=== PATIENT | female | born 1985 | race African-American/Black ===

== ENCOUNTER 2020-03-20 13:10 | Emergency (ER) | payer OTHER, SELFPAY ==
[2020-03-20 13:16] VITALS: BP 184/121; PULSE 100; RESP 20; TEMP 36.8; O2SAT 100
--- NOTE | 2020-03-20 13:33 | ED.DENTAL ---
HPI - Dental/Oral General Chief complaint: Dental/Oral <JORGE L Butler Last Filed: 03/20/20 14:11> Stated complaint: Toothache <JORGE L Butler Last Filed: 03/20/20 14:11> Time Seen by Provider: 03/20/20 13:11 <JORGE L Butler Last Filed: 03/20/20 14:11> Source: patient <JORGE L Butler Last Filed: 03/20/20 14:11> Mode of arrival: ambulatory <JORGE L Butler Last Filed: 03/20/20 14:11> Limitations: no limitations <JORGE L Butler Last Filed: 03/20/20 14:11> History of Present Illness HPI Narrative: Patient presents the emergency department for toothache x2 weeks. Reports 2 teeth on the left side of her mouth has been bothering her. Reports worsening over the last couple of days. She has been taking [id number] pain medication with little relief. Denies fever, swelling, or vomiting. <Jaelyn Estrada PA-C - Last Filed: 03/20/20 14:11> Location: Tooth # (16, 17) <JORGE L Butler Last Filed: 03/20/20 14:11> Related Data Allergies/adverse reactions: Allergies Allergy/AdvReac Type Severity Reaction Status Date / Time Penicillins Allergy Intermediate Swelling Verified 03/20/20 13:21 codeine Allergy Mild Hives / Verified 03/20/20 13:21 Red Face zolpidem AdvReac Intermediate Hallucinati Verified 03/20/20 13:21 ng pinapples Allergy Unknown Swelling Uncoded 03/20/20 13:21 of Lip/Tongue/Throat <JORGE L Butler Last Filed: 03/20/20 14:11> Review of Systems Review of Systems: Narrative: CONSTITUTIONAL: Denies fever ENT: Reports dentalgia <JORGE L Butler Last Filed: 03/20/20 14:11> All systems reviewed & are unremarkable except as noted in HPI and below <JORGE L Butler Last Filed: 03/20/20 14:11> [facility] Surgical History Surgical History: Surgical History (Updated 03/20/20 @ 13:35 by Jaelyn Estrada PA-C) History of appendectomy <Jaelyn Estrada PA-C - Last Filed: 03/20/20 14:11> Social History Social History: Social History (Updated 03/20/20 @ 13:35 by Jaelyn Estrada PA-C) Smoking status: Never smoker Substance use: never Gender identity (if verbalized by the patient): Female <Jaelyn Estrada PA-C - Last Filed: 03/20/20 14:11> Exam Narrative: Exam Narrative: GENERAL: Well-appearing, well-nourished, and in no acute distress. HEAD: Normocephalic, atraumatic. EYES: EOMI. ENT: Oropharynx without tonsillar hypertrophy exudate or other lesions. Tooth #16 and 17 tender to palpation, no surrounding erythema or edema to suggest abscess NECK: Supple. No adenopathy or masses. CHEST: Airway patent EXTREMITIES: Normal range of motion. No edema. SKIN: Warm, dry, no rash. NEURO: No focal deficits. Alert and oriented x3. PSYCH: Normal mood and affect <Jaelyn Estrada PA-C - Last Filed: 03/20/20 14:11> Course Vital Signs Vital signs: Vital Signs Temperature 98.3 F 03/20/20 13:16 Pulse Rate 100 03/20/20 13:16 Respiratory Rate 20 03/20/20 13:16 Blood Pressure 184/121 H 03/20/20 13:16 Pulse Oximetry 100 03/20/20 13:16 Temperature 98.3 F 03/20/20 13:16 Pulse Rate 84 03/20/20 14:43 Respiratory Rate 16 03/20/20 14:43 Blood Pressure 182/124 H 03/20/20 14:43 Pulse Oximetry 98 03/20/20 14:43 <Jaelyn Estrada PA-C - Last Filed: 03/20/20 14:11> Vital Signs Temperature 98.3 F 03/20/20 13:16 Pulse Rate 100 03/20/20 13:16 Respiratory Rate 20 03/20/20 13:16 Blood Pressure 184/121 H 03/20/20 13:16 Pulse Oximetry 100 03/20/20 13:16 Temperature 98.3 F 03/20/20 13:16 Pulse Rate 84 03/20/20 14:43 Respiratory Rate 16 03/20/20 14:43 Blood Pressure 182/124 H 03/20/20 14:43 Pulse Oximetry 98 03/20/20 14:43 <Neha James MD - Last Filed: 03/20/20 14:58> MDM - Dental/Oral MDM Narrative Medical decision making narrative: Patient presents the emergency
[2020-03-20 13:52] VITALS: PULSE 85; RESP 18; O2SAT 98
[2020-03-20 14:43] VITALS: BP 182/124; PULSE 84; RESP 16; O2SAT 98
== END 2020-03-20 14:44 | disposition home or self-care (01) ==
PROVIDERS: Emergency Provider General Practice
DX: K08.89 Other specified disorders of teeth and supporting structures (principal); R03.0 Elevated blood-pressure reading, without diagnosis of hypertension
CPT/HCPCS: 99283; A9270

== ENCOUNTER 2020-09-14 13:46 | Emergency (ER) | payer OTHER, SELFPAY ==
[2020-09-14] VITALS (16 sets, daily range): BP systolic 128–145; BP diastolic 100–106; PULSE 123; RESP 20; TEMP 36.1; O2SAT 87–100
--- NOTE | ~2020-09-14 | CT_ITS ---
EXAMINATION: CT abdomen pelvis w con DATE: 09/14/2020 16:00 INDICATION: Upper abdominal pain TECHNIQUE: Computed tomography (CT) of the abdomen and pelvis was performed with 100 mL Omnipaque-350 intravenous contrast. Automated exposure control and iterative reconstruction technique were employe d. The dose-length product was 484.08 mGy-cm. COMPARISON: 02/17/2014 FINDINGS: Dependent atelectasis, mild on the left and minimal on the right. Heart size is normal. No pericardia l or pleural effusion. Focal hepatic steatosis at the ligamentum teres. Gallbladder, spleen, pancreas , bilateral adrenal glands and kidneys are normal. No abnormal bowel wall thickening or obstruction. Suture line at the tip of the cecum consistent with prior appendectomy. Bladder is normal. The uterus is no longer identified and has likely been surgically resected. 4 cm cystic lesion at the right adn exa with gradient of increasing dependent density suggesting a hemorrhagic cyst with layering hematoc rit level. Additional smaller simple appearing adnexal cyst measuring 2.2 cm on the right and 1.9 cm on the left. Bladder is normal. Minimal likely physiologic free fluid in the deep pelvis. No free int raperitoneal gas. No pathologically enlarged abdominal or pelvic lymphadenopathy. Mild bilateral sacr oiliac osteoarthritis. IMPRESSION: 1. 4 cm complex cystic right adnexal lesion most likely representing a hemorrhagic cyst with dependen tly layering hematocrit level. Consider follow-up ultrasound in 6-12 weeks to document resolution. Reviewed, dictated and finalized at location B. IMPRESSION: 1. 4 cm complex cystic right adnexal lesion most likely representing a hemorrha gic cyst with dependently layering hematocrit level. Consider follow-up ultraso und in 6-12 weeks to document resolution.
--- NOTE | ~2020-09-14 | US_ITS ---
EXAMINATION: US pelvic complete w TV DATE: 09/14/2020 17:07 INDICATION: Ovarian cyst. TECHNIQUE: Multiple transabdominal and transvaginal sonographic images of the pelvis were obtained. COMPARISON: Ultrasound 02/17/14, CT 09/14/2020 FINDINGS: TRANSABDOMINAL ULTRASOUND: The uterus is absent. There is no free fluid in the pelvis. TRANSVAGINAL ULTRASOUND: The right ovary measures 5.1 x 3.2 x 3.5 cm. There is a 3.4 cm hypoechoic mass with small cystic spac es in right ovary, likely a hemorrhagic cyst. There is a 2.5 cm hypoechoic mass with small cystic spa james in right ovary, likely a hemorrhagic cyst. The left ovary measures 1.5 x 1.3 x 1.6 cm. There is v ascular flow in the ovaries. IMPRESSION: 1. Two masses in right ovary, likely hemorrhagic cysts. Pelvis ultrasound is recommended in 6-12 week s. Reviewed, dictated and finalized at location A. IMPRESSION: 1. Two masses in right ovary, likely hemorrhagic cysts. Pelvis ultrasound is re commended in 6-12 weeks.
--- NOTE | 2020-09-14 14:00 | PC.NURSE ---
patient brought to ED room 12 with c/o abdomen pain for the last 7 days. see triage notes. alert. oriented. denies need for pain meds right now. denies N/V/D. hx of partial hysterectomy but possible hx of ovarian cysts. assessments documented. labs drawn in triage. reviewed current treatment plan with patient and expected wait time.
[2020-09-14 14:02] LABS: Basophils Absolute Auto 0.1 K/mm3 (0.0-0.1); Basophils Percent Auto 0.8 % (0.2-1.2); Eosinophils Absolute Auto 0.3 K/mm3 (0-0.3); Eosinophils Percent Auto 4.4 % (0-4.4); Hematocrit 44.8 % (37.0-47.0); Hemoglobin 14.9 g/dL (12.0-15.0); Immature Granulocyte Absolute 0.02 K/mm3 (0.00-0.031); Immature Granulocyte Percent A 0.3 % (0-0.5); Lymphocytes Absolute Auto 2.57 K/mm3 (0.9-3.2); Lymphocytes Percent Auto 38.6 % (18.3-44.2); Mean Corpuscular HGB Conc 33.3 g/dl (32-36); Mean Corpuscular Hemoglobin 28.9 pg (26-34); Monocytes Absolute Auto 0.4 K/mm3 (0.1-0.6); Monocytes Percent Auto 5.4 % (2.6-8.5); Neutrophils Absolute Auto 3.4 K/mm3 (1.3-6.7); Neutrophils Percent Auto 50.5 % (45.5-73.1); Platelet Count Result 223 k/mm3 (150-375); Red Blood Count 5.15 M/mm3 (4.2-5.4); Red Cell Distribution Width 14.5 % (11.5-14.5); White Blood Count 6.7 K/mm3 (4.5-10.0)
[2020-09-14 14:15] LABS: Alanine Aminotransferase 23 U/L (4-35); Albumin Level 4.5 g/dL (3.5-5.1); Alkaline Phosphatase 73 U/L (38-126); Anion Gap 8 mmol/L (8-16); Aspartate Amino Transferase 26 U/L (14-36); Bilirubin,Total 0.6 mg/dL (0.2-1.3); Blood Urea Nitrogen 7 mg/dL (7-17); Calcium 9.4 mg/dL (8.4-10.2); Carbon Dioxide 28 mmol/L (22-30); Chloride 103 mmol/L (98-107); Estimated CRCL calculation 77 ml/min; Estimated Glomerular Filt Rate > 60; Glucose 162 mg/dL (65-105); Lipase 71 U/L (23-300); Potassium 3.8 mmol/L (3.4-5.0); Sodium 139 mmol/L (137-145)
--- NOTE | 2020-09-14 15:29 | ED.ABDPAIN ---
HPI - Abdominal Pain General Chief Complaint: Abdominal Pain Stated Complaint: ABD PAIN Time Seen by Provider: 09/14/20 15:09 Source: patient Mode of arrival: ambulatory Limitations: no limitations History of Present Illness HPI narrative: Patient presents to the emergency department for abdominal pain x1 week. The pain has been constant. She notices the pain is better after she eats. Pain is sharp in nature and located in the upper abdomen. Reports she has also had intermittent lower abdominal pain. Denies fever, vomiting, dysuria, or hematuria. Related Data Allergies Allergy/AdvReac Type Severity Reaction Status Date / Time pineapple Allergy Severe Swelling Verified 09/14/20 15:33 of Lip/Tongue/Throat Penicillins Allergy Intermediate Swelling Verified 03/20/20 13:21 codeine Allergy Mild Hives / Verified 03/20/20 13:21 Red Face zolpidem AdvReac Intermediate Hallucinati Verified 03/20/20 13:21 ng Review of Systems Review of Systems: Narrative: CONSTITUTIONAL: Denies fever CARDIOVASCULAR: Denies chest pain RESPIRATORY: Denies dyspnea. GASTROINTESTINAL: Reports abdominal pain. Denies nausea, vomiting, or diarrhea. GENITOURINARY: Denies dysuria or hematuria. All systems reviewed & are unremarkable except as noted in HPI and below PMFSH Surgical History Surgical History (Updated 03/20/20 @ 13:35 by Jaelyn Estrada PA-C) History of appendectomy Social History Social History (Updated 03/20/20 @ 13:35 by Jaelyn Estrada PA-C) Smoking status: Never smoker Substance use: never Gender identity (if verbalized by the patient): Female Exam Narrative: Exam Narrative: GENERAL: Well-appearing, well-nourished, and in no acute distress. HEAD: Normocephalic, atraumatic. EYES: EOMI. CHEST: Clear to auscultation. No respiratory distress. No wheezes rales or rhonchi HEART: Regular rate and rhythm. No murmur heard. Normal peripheral pulses. ABDOMEN: Soft, nondistended, normal active bowel sounds. Tender to palpation in the epigastrium, without guarding. No CVA tenderness EXTREMITIES: Normal range of motion. No edema. SKIN: Warm, dry, no rash. NEURO: No focal deficits. Alert and oriented x3. PSYCH: Normal mood and affect Course Vital Signs Vital signs: Vital Signs Temperature 97.0 F L 09/14/20 13:47 Pulse Rate 123 H 09/14/20 13:47 Respiratory Rate 20 09/14/20 13:47 Blood Pressure 128/100 H 09/14/20 13:47 Pulse Oximetry 100 09/14/20 13:47 Temperature 97.0 F L 09/14/20 13:47 Pulse Rate 123 H 09/14/20 13:47 Respiratory Rate 20 09/14/20 13:47 Blood Pressure 145/106 H 09/14/20 16:16 Pulse Oximetry 100 09/14/20 16:16 MDM - Abdominal Pain MDM Narrative Medical decision making narrative: Patient presents to the emergency department for upper abdominal discomfort. Reports this was better after eating. Has been constant for the last week. Was also reporting some intermittent lower abdominal pain. She is afebrile and nontoxic-appearing. Tachycardic upon arrival, this normalized without intervention. CBC and metabolic panel without concerning findings. Lipase is normal. UA without overt evidence of infection. Was likely a contaminated catch and will go for culture. Patient is asymptomatic. CT scan of the abdomen and pelvis shows a 4 cm complex cyst of the right adnexa which is likely hemorrhagic cyst. Pelvic ultrasound shows 2 hemorrhagic cysts in the right ovary. No free fluid in the pelvis. Normal vascular flow and ovaries. Patient was updated on case findings. Instructed to take Prilosec for upper abdominal discomfort. Instructed to follow-up with her orchard hand for her ovarian cyst. Patient is stable and felt appropriate for the outpatient evaluation. She was given warnings to return to the ER Lab Data Attestation: I reviewed the patient's lab results. Result diagrams: 09/14/20 13:56 09/14/20 13:56 Labs: Lab Results 08/20
--- NOTE | 2020-09-14 15:31 | PC.NURSE ---
provider at bedside. SL inserted. urine collected. has call light in reach. denies other needs at this time. updated on current treatment plan and expected wait time.
[2020-09-14] MEDS: PANTOPRAZOLE SODIUM IV 40 MG VIAL IV PUSH (15:45)
[2020-09-14 15:50] LABS: Add Urine Microscopic? YES; Appearance Urine Cloudy (Clear); Bacteria Urine 1+ /hpf; Bilirubin Urine Negative (Negative); Blood Urine 2+ (Negative); Color Urine Yellow (Yellow); Glucose Urine UA 3+ mg/dL (Negative); Ketones Urine Negative (Negative); Leukocyte Esterase Ur Negative LEU/UL (Negative); Mucus Urine Few /lpf; Nitrate Urine Negative (Negative); Protein Urine Negative (Negative); Specific Grav Ur 1.011 (1.001-1.035); Squamous Epithelial Cell Urine Many /hpf (Few); Urobilinogen Urine Negative mg/dL (<2.0)
--- NOTE | 2020-09-14 16:50 | PC.NURSE ---
CT resulted. patient has ultrasound pending.
--- NOTE | 2020-09-14 18:25 | PC.NURSE ---
discharge instructions reviewed with patient. no new prescriptions. aware of ultrasound results and need to fu with gaming manager. SL removed intact and without difficulty. denies any needs prior to discharge. patient ambulated to ED exit with steady gait.
== END 2020-09-14 18:15 | disposition home or self-care (01) ==
PROVIDERS: Emergency Medicine; Emergency Provider Emergency Medicine
DX: N83.291 Other ovarian cyst, right side (principal); R10.13 Epigastric pain
CPT/HCPCS: 36415; 74177; 76830; 76856; 80053; 81001; 83690; 85025; 87086; 87088; 96374; 99284; C9113; Q9967

== ENCOUNTER 2021-02-19 14:15 | Emergency (ER) | payer OTHER, SELFPAY ==
--- NOTE | ~2021-02-19 | XR_ITS ---
EXAMINATION: XR shoulder LT min 2V DATE: 02/19/2021 14:45 INDICATION: Left shoulder pain. TECHNIQUE: 4 views of left shoulder were obtained. COMPARISON: Left shoulder radiographs 03/16/2015 FINDINGS: Bone alignment is normal. No fracture. There is mild glenohumeral joint osteoarthritis italo acterized by a subchondral cyst in the glenoid. The acromioclavicular joint is normal. IMPRESSION: 1. Mild glenohumeral joint osteoarthritis. Reviewed, dictated and finalized at location A.
[2021-02-19 14:16] VITALS: BP 156/106; PULSE 105; RESP 18; TEMP 36.2; O2SAT 100
[2021-02-19 15:32] VITALS: PULSE 82; O2SAT 100
--- NOTE | 2021-02-19 16:40 | ED.GENADULT ---
HPI - General Adult General Chief complaint: Extremity Injury, Upper Stated complaint: l shoulder pain Time Seen by Provider: 02/19/21 14:23 Source: patient Mode of arrival: ambulatory Limitations: no limitations History of Present Illness HPI narrative: Patient with history of rotator cuff surgery presents with chief complaint of pain to the left shoulder. Patient state she had rotator cuff surgery when in the a few years ago. Patient states she does not have any acute injury that she can recall. She reports over the past 2 days she has noticed more pain and tightening to the area decreasing her abduction without discomfort. Patient states she is not in contact with her other pain specialist anymore since she is out of the service. Patient denies any other concerns or complaints. Related Data Allergies Allergy/AdvReac Type Severity Reaction Status Date / Time pineapple Allergy Severe Swelling Verified 02/19/21 14:17 of Lip/Tongue/Throat Penicillins Allergy Intermediate Swelling Verified 02/19/21 14:17 codeine Allergy Mild Hives / Verified 02/19/21 14:17 Red Face zolpidem AdvReac Intermediate Hallucinati Verified 02/19/21 14:17 ng Review of Systems Review of Systems: Narrative: CONSTITUTIONAL: Denies fever, chills, or sweats. EYES: Denies visual changes, redness, or discharge. ENT: Denies rhinorrhea, congestion, sore throat, or otalgia. CARDIOVASCULAR: Denies chest pain, palpitations, or edema. RESPIRATORY: Denies cough or dyspnea. GASTROINTESTINAL: Denies abdominal pain, nausea, vomiting, or diarrhea. GENITOURINARY: Denies dysuria or hematuria. SKIN: Denies rash or itching. MUSCULOSKELETAL: Reports left shoulder pain denies back pain, joint pain, or myalgia. NEUROLOGIC: Denies headache, numbness, dizziness, or weakness. PSYCHIATRIC: Denies anxiety or depression. PMFSH Surgical History Surgical History (Updated 03/20/20 @ 13:35 by Jaelyn Estrada PA-C) History of appendectomy Social History Social History (Updated 03/20/20 @ 13:35 by Jaelyn Estrada PA-C) Smoking status: Never smoker Substance use: never Gender identity (if verbalized by the patient): Female Exam Narrative: Exam Narrative: GENERAL: Well-appearing, well-nourished, and in no acute distress. HEAD: Normocephalic, atraumatic. EYES: PERRLA and EOMI. ENT: Nares clear, no rhinorrhea or epistaxis. Mucous membranes moist. Oropharynx without tonsillar hypertrophy exudate or other lesions. Bilateral TMs pearly lay nonbulging NECK: Supple. No adenopathy or masses. Motion intact. CHEST: Clear to auscultation. No respiratory distress. No wheezes rales or rhonchi HEART: Regular rate and rhythm. No murmur heard. Normal peripheral pulses. EXTREMITIES: No swelling or erythema appreciated. No tenderness with anterior palpation of rotator cuff. Patient reports pain with abduction greater than 45 degrees, internal and external rotation. Stripper And Taper strength intact bilaterally. No edema. SKIN: Warm, dry, no rash. NEURO: No focal deficits. Alert and oriented x3. PSYCH: Normal mood and affect. Course Vital Signs Vital signs: Vital Signs Temperature 97.1 F L 02/19/21 14:16 Pulse Rate 105 H 02/19/21 14:16 Respiratory Rate 18 02/19/21 14:16 Blood Pressure 156/106 H 02/19/21 14:16 Pulse Oximetry 100 02/19/21 14:16 Temperature 97.1 F L 02/19/21 14:16 Pulse Rate 82 02/19/21 15:32 Respiratory Rate 18 02/19/21 14:16 Blood Pressure 156/106 H 02/19/21 14:16 Pulse Oximetry 100 02/19/21 15:32 Medical Decision Making MDM Narrative Medical decision making narrative: Discussed with patient need to follow-up with technology sales specialist for further evaluation and management. Patient informed that her symptoms are more tendon/ligament related. Patient instructed to return to emergency department she has emergency evaluation. Vital Signs Vital Signs: Vital Signs Temperature 97.1 F L 02/19/21 14:16 Pulse
== END 2021-02-19 15:39 | disposition home or self-care (01) ==
PROVIDERS: Emergency Provider Family Medicine
DX: S46.912A Strain of unspecified muscle, fascia and tendon at shoulder and upper arm level, left arm, initial encounter (principal); X58.XXXA Exposure to other specified factors, initial encounter
CPT/HCPCS: 73030; 99283

== ENCOUNTER 2022-05-04 10:59 | Emergency (ER) | payer OTHER, SELFPAY ==
[2022-05-04] VITALS (10 sets, daily range): BP systolic 130–143; BP diastolic 99–105; PULSE 70–110; RESP 16–20; TEMP 36.7; O2SAT 98–100
--- NOTE | ~2022-05-04 | XR_ITS ---
EXAMINATION: XR chest 2V DATE: 05/04/2022 11:33 INDICATION: Left anterior chest wall pain. Shortness of breath. TECHNIQUE: Frontal and lateral views of the chest were obtained. COMPARISON: CT abdomen and pelvis 09/14/2020 FINDINGS: The chest demonstrates clear lungs without pneumonia, pleural effusion, or pneumothorax. Th e heart size is normal. IMPRESSION: 1. No acute cardiopulmonary disease. Reviewed, dictated and finalized at location B.
--- NOTE | ~2022-05-04 | CT_ITS ---
EXAMINATION: CTA chest PE protocol DATE: 05/04/2022 13:42 INDICATION: Chest pain. Elevated d-dimer. TECHNIQUE: Computed tomography angiography (CTA) of the chest was performed with 100 mL Omnipaque-350 intravenous contrast timed to evaluate the pulmonary arteries. Coronal maximum intensity projection 3D-reconstructions were created by the technologist. Automated exposure control and iterative reconst ruction technique were employed. Exam dose: 299.63 mGy-cm total exam DLP. COMPARISON: 05/04/2022 2 view chest FINDINGS: There is diagnostic contrast enhancement of the pulmonary arteries and no evidence of pulmo nary embolus in. No thoracic aortic aneurysm. Normal heart size. No pericardial or pleural effusion. No hilar or mediastinal mass lesion or lymphadenopathy. Normal morphology of the adrenal glands. There is minimal dependent atelectasis in the lower lobes. The lungs are clear of infiltrate or conso lidation. No pulmonary mass density. No pneumothorax. Included skeletal structures are unremarkable. IMPRESSION: No evidence of pulmonary embolism Reviewed, dictated and finalized at Location A. Reviewed, dictated and finalized at location A.
--- NOTE | 2022-05-04 11:02 | ECG_ITS ---
Measurements Intervals Rush Rate: 109 P: 63 OR: 158 QRS: 75 QRSD: 76 T: 53 QT: 317 QTc: 428 Interpretive Statements SINUS TACHYCARDIA ABNORMAL RHYTHM ECG NO PREVIOUS ECG AVAILABLE FOR COMPARISON Electronically Signed On 05-04-2022 11:20:20 CDT by Tanika Wiley MD
[2022-05-04 11:24] LABS: Basophils Absolute Auto 0.1 K/mm3 (0.0-0.1); Eosinophils Absolute Auto 0.2 K/mm3 (0-0.3); Eosinophils Percent Auto 2.7 % (0-4.4); Hematocrit 42.8 % (37.0-47.0); Hemoglobin 13.8 g/dL (12.0-15.0); Immature Granulocyte Absolute 0.01 K/mm3 (0.00-0.031); Immature Granulocyte Percent A 0.2 % (0-0.5); Lymphocytes Absolute Auto 2.95 K/mm3 (0.9-3.2); Lymphocytes Percent Auto 47.3 % (18.3-44.2); Mean Corpuscular HGB Conc 32.2 g/dl (32-36); Mean Corpuscular Hemoglobin 28.7 pg (26-34); Mean Platelet Volume 10.9 fl (7.4-10.4); Monocytes Absolute Auto 0.4 K/mm3 (0.1-0.6); Monocytes Percent Auto 5.6 % (2.6-8.5); Neutrophils Absolute Auto 2.7 K/mm3 (1.3-6.7); Neutrophils Percent Auto 43.2 % (45.5-73.1); Platelet Count Result 225 k/mm3 (150-375); Red Blood Count 4.81 M/mm3 (4.2-5.4); Red Cell Distribution Width 14.6 % (11.5-14.5); White Blood Count 6.2 K/mm3 (4.5-10.0)
[2022-05-04 11:33] LABS: Prothrombin Time 12.4 Seconds (11.1-14.7)
[2022-05-04 11:34] LABS: Partial Thromboplastin Time 29.2 SECONDS (22.3-36.8)
[2022-05-04 11:39] LABS: Alanine Aminotransferase 11 U/L (6-35); Albumin Level 4.5 g/dL (3.5-5.1); Alkaline Phosphatase 74 U/L (38-126); Anion Gap 7 mmol/L (8-16); Aspartate Amino Transferase 18 U/L (14-36); Bilirubin,Total 0.4 mg/dL (0.2-1.3); Blood Urea Nitrogen 10 mg/dL (7-17); Carbon Dioxide 28 mmol/L (22-30); Chloride 105 mmol/L (98-107); Estimated CRCL calculation 60 ml/min; Estimated Glomerular Filt Rate > 60; Glucose 103 mg/dL (65-110); Lipase 93 U/L (23-300); Potassium 4.1 mmol/L (3.4-5.0); Sodium 140 mmol/L (137-145)
--- NOTE | 2022-05-04 11:50 | ED.CHESTPAIN ---
HPI - Chest Pain General Chief Complaint: Chest Pain Stated Complaint: CHEST PAIN X5D Time Seen by Provider: 05/04/22 11:33 History of Present Illness HPI narrative: 36-year-old female presents to the emergency room today for complaints of right rib pain and pain with inspiration. Her symptoms started on Sunday with left lateral rib pain and pain with inspiration. It seemed to ease off after a day but still having the left-sided pain currently. Over the past 2 days it seems to be more on the right side. She reports that it is tender to touch when she presses on the rib going around to her back. Denies any skin rash. No shortness of breath. She has not had any cough or congestion. No fever or chills. She is normally very healthy denies any cardiac history or pulmonary history. Related Data Allergies Allergy/AdvReac Type Severity Reaction Status Date / Time pineapple Allergy Severe Swelling Verified 05/04/22 12:26 of Lip/Tongue/Throat Penicillins Allergy Intermediate Swelling Verified 05/04/22 12:26 codeine Allergy Mild Hives / Verified 05/04/22 12:26 Red Face zolpidem AdvReac Intermediate Hallucinati Verified 05/04/22 12:26 ng Review of Systems Review of Systems: CONSTITUTIONAL: Denies fever, chills, or sweats. EYES: Denies visual changes, redness, or discharge. ENT: Denies rhinorrhea, congestion, sore throat, or otalgia. CARDIOVASCULAR: palpitations, or edema. REporting chest wall pain RESPIRATORY: Denies cough or dyspnea. reporting pain in chest wall with inspiration GASTROINTESTINAL: Denies abdominal pain, nausea, vomiting, or diarrhea. GENITOURINARY: Denies dysuria or hematuria. SKIN: Denies rash or itching. MUSCULOSKELETAL: Denies back pain, joint pain, or myalgia. NEUROLOGIC: Denies headache, numbness, dizziness, or weakness. PSYCHIATRIC: Denies anxiety or depression. PMFSH Surgical History Surgical History History of appendectomy Social History Social History Smoking status: Never smoker Substance use: never Gender identity (if verbalized by the patient): Female Exam Narrative: GENERAL: Well-appearing, well-nourished, and in no acute distress. HEAD: Normocephalic, atraumatic. EYES: PERRLA and EOMI. ENT: Nares clear, no rhinorrhea or epistaxis. Mucous membranes moist. Oropharynx without tonsillar hypertrophy exudate or other lesions. Bilateral TMs pearly lay nonbulging NECK: Supple. No adenopathy or masses. No carotid bruits or JVD CHEST: Clear to auscultation. No respiratory distress. No wheezes rales or rhonchi, tenderness right lateral and posterior middle chest wall/intercostal HEART: Regular rate and rhythm. No murmur heard. Normal peripheral pulses. ABDOMEN: Soft, nontender, nondistended, normal active bowel sounds. EXTREMITIES: Normal range of motion. No edema. SKIN: Warm, dry, no rash. NEURO: No focal deficits. Alert and oriented x3. PSYCH: Normal mood and affect. Course Reevaluation(s) Reevaluation #1: Reports adequate relief of pain Date: 05/04/22 Time: 12:30 Vital Signs Vital signs: Vital Signs Temperature 36.7 C 05/04/22 11:03 Pulse Rate 110 H 05/04/22 11:03 Respiratory Rate 20 05/04/22 11:03 Blood Pressure 130/99 H 05/04/22 11:03 Pulse Oximetry 98 05/04/22 11:03 Oxygen Delivery Room Air 05/04/22 11:03 Temperature 36.7 C 05/04/22 11:03 Pulse Rate 110 H 05/04/22 11:03 Respiratory Rate 20 05/04/22 11:03 Blood Pressure 131/101 H 05/04/22 13:31 Pulse Oximetry 100 05/04/22 13:32 Oxygen Delivery Room Air 05/04/22 12:00 MDM - Chest Pain Lab Data Attestation: I reviewed the patient's lab results. Result diagrams: 05/04/22 11:09 05/04/22 11:09 Labs: Lab Results 05/04/22 05/04/22 05/04/22 Range/Units 11:09 11:09 11:09 WBC 6.2 (4.5-10.0) K/mm3 RBC 4.81 (
[2022-05-04 11:52] LABS: Troponin I < 0.012 ng/mL (0.000-0.034)
[2022-05-04] MEDS: IBUPROFEN 600 MG TABLET PO (12:21)
[2022-05-04 13:01] LABS: D Dimer 0.87 ug/mL (<0.48)
--- NOTE | 2022-05-04 13:39 | PC.NURSE ---
Patient off unit to CT.
[2022-05-04 14:34] LABS: Troponin I < 0.012 ng/mL (0.000-0.034)
== END 2022-05-04 14:23 | disposition home or self-care (01) ==
PROVIDERS: Family Medicine; Emergency Provider Nurse Practitioner Family
DX: M94.0 Chondrocostal junction syndrome [Tietze] (principal); R00.0 Tachycardia, unspecified
CPT/HCPCS: 36415; 71046; 71275; 80053; 83690; 84484; 85025; 85380; 85610; 85730; 93005; 99284; A9270; Q9967